=== PATIENT | male | born 1950 | race Caucasian/White ===

== ENCOUNTER → 2019-04-03 | Outpatient (CLI) | payer MEDICARE, OTHER ==
--- NOTE | 2019-04-03 12:20 | Diagnostic Imaging Report ---
PROCEDURE: CT abdomen and pelvis without contrast. TECHNIQUE: Multiple contiguous axial images were obtained through the abdomen and pelvis without the use of intravenous contrast. Auto Exposure Controls were utilized during the CT exam to meet ALARA standards for radiation dose reduction. INDICATION: New diagnosis prostate cancer. COMPARISON: None FINDINGS: Included portions of the lung bases are clear. Note is made of moderate calcified coronary atherosclerosis. CT ABDOMEN: Small bowel loops are nondistended. Normal appendix is identified. Multiple hypodense bilateral renal cysts are identified. Otherwise, kidneys, adrenal glands, spleen, pancreas, and liver have an unremarkable noncontrast CT appearance. There is no loculated fluid collection, free fluid, nor free air within the abdomen. No abnormal mesenteric or retroperitoneal adenopathy is seen. Osseous structures show no acute abnormalities. CT PELVIS: Urinary bladder is unopacified. No calculi are seen within the urinary bladder. There is no loculated fluid collection, free fluid, nor free air within the pelvis. No abnormal lymph nodes are identified. Bilateral fat-containing inguinal hernias are noted. Osseous structures show no acute abnormalities. IMPRESSION: 1. Bilateral hypodense renal cysts. Otherwise, unremarkable noncontrast CT of the abdomen and pelvis. Dictated by: Dictated on workstation # [id number]
== END ==
LOC: RAD 11:30
PROVIDERS: ATTEND Urology
DX: C61 Malignant neoplasm of prostate (principal); N28.1 Cyst of kidney, acquired
CPT/HCPCS: 74176

== ENCOUNTER → 2019-04-03 | Outpatient (CLI) | payer MEDICARE ==
--- NOTE | 2019-04-03 15:17 | Diagnostic Imaging Report ---
INDICATION: Prostate carcinoma. TECHNIQUE: Patient was administered 25.2 mCi of technetium-99m MDP intravenously, and whole-body imaging was performed after a 3-hour delay. COMPARISON: No prior studies are available for comparison. FINDINGS: There is normal uptake of activity by the axial and appendicular skeleton. There is uptake by the kidneys with excretion into urinary bladder. There is some mild uptake in the mid and lower thoracic spine. There is some uptake identified in the lower lumbar spine. This is most likely degenerative. No other suspicious foci are seen. There are some chronic changes of the right foot and ankle region. IMPRESSION: Degenerative and chronic changes, as described. There is no definite scintigraphic evidence of osseous metastatic disease. Dictated by: Dictated on workstation # [id number]
== END ==
LOC: CARD 11:24
PROVIDERS: ATTEND Urology
DX: C61 Malignant neoplasm of prostate (principal); M19.90 Unspecified osteoarthritis, unspecified site
CPT/HCPCS: 78306

== ENCOUNTER 2019-04-23 13:29 | Outpatient (RCR) | payer MEDICARE, OTHER | END 2019-07-22 | disposition home or self-care (01) | LOC: ONC 13:29 | PROVIDERS: ATTEND Radiology Radiation Oncology | DX: C61 Malignant neoplasm of prostate (principal) | CPT/HCPCS: 99204 ==

== ENCOUNTER 2019-08-25 05:33 | Outpatient (RCR) | payer MEDICARE, OTHER ==
[~2019-08-25] VITALS: Ht 170.2 cm; Wt 83.6 kg
[~2019-08-25 05:33] MED LIST: ASPI-586 PO; ATOR10TA66 PO; FINA5TAB6 PO; FLUO20CA46 PO; GLIM2TAB4 PO; LORA10TA76 PO; MELO15TA39 PO; METF-397 PO; METO-333 PO; NAPR220T66 PO
== END 2019-08-25 11:02 | disposition home or self-care (01) ==
LOC: PREOP 05:33
PROVIDERS: ATTEND Urology
DX: Z01.812 Encounter for preprocedural laboratory examination (principal); C61 Malignant neoplasm of prostate; Z20.828 Contact with and (suspected) exposure to other viral communicable diseases
CPT/HCPCS: 87635

== ENCOUNTER 2019-08-27 06:12 | Day surgery (SDC) | payer MEDICARE, OTHER ==
[~2019-08-27] VITALS: Ht 172 cm; Wt 82.7 kg
[2019-08-27] VITALS (11 sets, daily range): BP systolic 104–132; BP diastolic 61–96
--- OUTSIDE RECORDS SUMMARY | 2019-08-27 06:16 | XMS REPORT | Continuity of Care Document ---
Demographics x Preferred Language Unknown Marital Status Unknown Taoist Affiliation Unknown Race Unknown Ethnic Group Unknown Author Organization Unknown Address Unknown Phone Unavailable Allergies Active Description Code Type Severity Reaction Onset Reported/Identified Relationship to Patient Clinical Status Yes No Known Drug Allergies [id number] Drug Allergy Unknown N/A 08/20/2019 Medications There is no data. Problems Date Dx Coded Attending Type Code Diagnosis Diagnosed By 04/07/2019 CHUCKIE TORREZ MD, Ot C61 MALIGNANT NEOPLASM OF PROSTATE 04/07/2019 CHUCKIE TORREZ MD Ot M19.9 0 UNSPECIFIED OSTEOARTHRITIS, UNSPECIFIED 04/09/2019 CHUCKIE TORREZ MD Ot C61 MALIGNANT NEOPLASM OF PROSTATE 04/09/2019 CHUCKIE TORREZ MD Ot N28.1 CYST OF KIDNEY, ACQUIRED 04/09/2019 CHUCKIE TORREZ MD Ot C61 MALIGNANT NEOPLASM OF PROSTATE 04/09/2019 CHUCKIE TORREZ MD Ot M19.9 0 UNSPECIFIED OSTEOARTHRITIS, UNSPECIFIED 04/23/2019 CHUCKIE TORREZ MD Ot C61 MALIGNANT NEOPLASM OF PROSTATE 04/23/2019 CHUCKIE TORREZ MD Ot M19.9 0 UNSPECIFIED OSTEOARTHRITIS, UNSPECIFIED 05/29/2019 FELIX DEMPSEY, ERIN Bassett Ot C61 MALIGNANT NEOPLASM OF PROSTATE 07/22/2019 ERIN WASHINGTON MD Ot C61 MALIGNANT NEOPLASM OF PROSTATE 07/24/2019 ERIN WASHINGTON MD E Ot C61 MALIGNANT NEOPLASM OF PROSTATE 07/28/2019 FELIX DEMPSEY, ERIN E Ot C61 MALIGNANT NEOPLASM OF PROSTATE 08/05/2019 ERIN WASHINGTON MD Ot C61 MALIGNANT NEOPLASM OF PROSTATE Procedures There is no data. Results Test Result Range LIPID PANEL - 06/13/18 09:00 CHOLESTEROL, TOTAL 112 mg/dL <200 HDL CHOLESTEROL 37 mg/dL >40 TRIGLYCERIDES 87 mg/dL <150 LDL-CHOLESTEROL 58 mg/dL (calc) NRG CHOL/HDLC RATIO 3.0 (calc) <5.0 NON HDL CHOLESTEROL 75 mg/dL (calc) <130 CBC w/MANUAL DIFF - 06/13/18 09:00 WHITE BLOOD CELL COUNT 4.9 Thousand/uL 3 .8-10.8 RED BLOOD CELL COUNT 4.24 Million/uL 4.2 0-5.80 HEMOGLOBIN 13.6 g/dL 13.2-17.1 HEMATOCRIT 38.6 % 38.5-50.0 MCV 91.0 fL 80.0-100.0 MCH 32.1 pg 27.0-33.0 MCHC 35.2 g/dL 32.0-36.0 RDW 12.6 % 11.0-15.0 PLATELET COUNT 178 Thousand/uL 140-400 MPV 10.2 fL 7.5-12.5 ABSOLUTE NEUTROPHILS 3464 cells/uL 1500- 7800 ABSOLUTE MONOCYTES 147 cells/uL 200-950 ABSOLUTE EOSINOPHILS 98 cells/uL 15-500 ABSOLUTE BASOPHILS 0 cells/uL 0-200 NEUTROPHILS 70.7 % NRG LYMPHOCYTES 24.3 % NRG MONOCYTES 3.0 % NRG EOSINOPHILS 2.0 % NRG BASOPHILS 0 % NRG ABSOLUTE LYMPHOCYTES 1191 cells/uL 850-3 900 PLATELET ESTIMATION ADEQUATE ADEQUATE COMMENT(S) NRG TSH - 06/13/18 09:00 TSH 1.99 mIU/L 0.40-4.50 TSH w/ FREE T4 - 12/11/18 09:49 TSH 2.82 mIU/L 0.40-4.50 T4, FREE 1.0 ng/dL 0.8-1.8 LIPID PANEL - 12/11/18 09:49 CHOLESTEROL, TOTAL 116 mg/dL <200 HDL CHOLESTEROL 46 mg/dL >40 TRIGLYCERIDES 69 mg/dL <150 LDL-CHOLESTEROL 55 mg/dL (calc) NRG CHOL/HDLC RATIO 2.5 (calc) <5.0 NON HDL CHOLESTEROL 70 mg/dL (calc) <130 CMP - 12/11/18 09:49 GLUCOSE 169 mg/dL 65-99 UREA NITROGEN (BUN) 23 mg/dL 7-25 CREATININE 0.81 mg/dL 0.70-1.18 eGFR NON-AFR. COLOMBIAN 90 mL/min/1.73m2 > OR = 60 eGFR 104 mL/min/1.73m2 > OR = 60 BUN/CREATININE RATIO NOT APPLICABLE (calc) 6-22 SODIUM 136 mmol/L 135-146 POTASSIUM 4.0 mmol/L 3.5-5.3 CHLORIDE 104 mmol/L 98-110 CARBON DIOXIDE 25 mmol/L 20-32 CALCIUM 9.3 mg/dL 8.6-10.3 PROTEIN, TOTAL 6.4 g/dL 6.1-8.1 ALBUMIN 4.4 g/dL 3.6-5.1 GLOBULIN 2.0 g/dL (calc) 1.9-3.7 ALBUMIN/GLOBULIN RATIO 2.2 (calc) 1.0-2. 5 BILIRUBIN, TOTAL 1.6 mg/dL 0.2-1.2 ALKALINE PHOSPHATASE 92 U/L 40-115 AST 17 U/L 10-35 ALT 9 U/L 9-46 CBC w/MANUAL DIFF - 12/11/18 09:49 WHITE BLOOD CELL COUNT 6.5 Thousand/uL 3 .8-10.8 RED BLOOD CELL COUNT 4.44 Million/uL 4.2 0-5.80 HEMOGLOBIN 14.2 g/dL 13.2-17.1 HEMATOCRIT 42.3 % 38.5-50.0 MCV 95.3 fL 80.0-100.0 MCH 32.0 pg 27.0-33.0 MCHC 33.6 g/dL 32.0-36.0 RDW 12.2 % 11.0-15.0 PLATELET COUNT 170 Thousand/uL 140-400 MPV 10.7 fL 7.5-12.5 ABSOLUTE NEUTROPHILS 3783 cells/uL 1500- 7800 ABSOLUTE MONOCYTES 598 cells/uL 200-950 ABSOLUTE EOSINOPHILS 267 cells/uL 15-500 ABSOLUTE BASOPHILS 130 cells/uL 0-200 NEUTROPHILS 58.2 % NRG LYMPHOCYTES 23.5 % NRG MONOCYTES 9.2 % NRG EOSINOPHILS 4.1 % NRG BASOPHILS 2.0 % NRG ABSOLUTE BAND NEUTROPHILS 195 cells/uL 0 -750 ABSOLUTE LYMPHOCYTES 1528 cells/uL 850-3 900 BAND NEUTROPHILS 3.0 % NRG PLATELET ESTIMATION ADEQUATE ADEQUATE CBC MORPHOLOGY NORMAL A1C - 12/11/18 09:49 HEMOGLOBIN A1c 6.4 % of total Hgb <5.7 PSA (FREE AND TOTAL) - 02/24/19 09:04 PSA, TOTAL 75.6 ng/mL < OR = 4.0 PSA, FREE 2.5 ng/mL NRG PSA, % FREE NOT CALCULATED % (calc) >25 A1C - 07/01/19 08:00 HEMOGLOBIN A1c 7.1 % of total Hgb <5.7 Encounters ACCT No. Visit Date/Time Discharge Status Pt. Type Provider Facility Loc./Unit Complaint [id number] 07/02/2019 14:20:00 07/02/2019 23:59: 59 CLS Outpatient [facility] [id number] 07/01/2019 07:45:00 Document Registration [id number] 02/24/2019 08:00:00 Document Registration [id number] 12/11/2018 07:45:00 Document Registration [id number] 06/13/2018 08:00:00 Document Registration [id number] 08/25/2019 05:33:00 11:02:00 DIS Outpatient CHUCKIE TORREZ MD [facility] PREOP BRACHYTHERAPY AND SPACE OAR [id number] 07/30/2019 10:59:00 23:59:59 CLS Outpatient ERIN WASHINGTON MD [facility] ONC [id number] 04/23/2019 13:29:00 00:01:00 DIS Outpatient ERIN WASHINGTON MD [facility] ONC [id number] 04/03/2019 11:30:00 23:59:59 CLS Outpatient CHUCKIE TORREZ MD [facility] RAD PROSTATE CANCER [id number] 04/03/2019 11:24:00 23:59:59 CLS Outpatient CHUCKIE TORREZ MD [facility] CARD PROSTATE CANCER [id number] 08/27/2019 08:00:00 P EN PreadCHUCKIE Mireles MD [facility] PROSTATE CANCER
[2019-08-27] MEDS ORDERED: LACTATED RINGERS 1,000 ML IV PRN (06:21)
[2019-08-27] MEDS ORDERED: LEVOFLOXACIN 500 MG/100 ML IV 100 ML IV ONE (06:30)
[2019-08-27] MEDS ORDERED: proPOfol 200 MG/20 ML (DIPRIVAN) VIAL IV ONE ×2 (06:38→07:58)
[2019-08-27] MEDS ORDERED: fentaNYL INJECTION 100 MCG/2 ML AMP ONE (06:38)
[2019-08-27] MEDS ORDERED: MIDAZOLAM 2 MG/2 ML (VERSED) VIAL ONE (06:38)
[2019-08-27] MEDS ORDERED: LIDOCAINE PF 2% 5 ML (XYLOCAINE) VIAL ONE (06:38)
[2019-08-27] MEDS ORDERED: ONDANSETRON 4 MG/2 ML (SDV) Z0FRAN ONE (06:44)
[2019-08-27] MEDS ORDERED: SEVOFLURANE (ULTANE) 15 ML INHAL SOLN ONE ×4 (06:45→08:41)
[2019-08-27] MEDS ORDERED: ROCURONIUM 10 MG/ML 5 ML SYRINGE IV ONE (06:47)
[2019-08-27] MEDS ORDERED: BACITRACIN OINTMENT 28 GM TUBE ONE (07:10)
--- NOTE | 2019-08-27 07:11 | Progress Note-Pre Operative ---
Pre-Operative Progress Note H&P Reviewed The H&P was reviewed, patient examined and no changes noted. Date Seen by Provider: Aug 27, 2019 Time Seen by Provider: 07:10 Date H&P Reviewed: Aug 27, 2019 Time H&P Reviewed: 07:10 Pre-Operative Diagnosis: CA PROSTATE CHUCKIE TORREZ MD Aug 27, 2019 07:11
--- NOTE | 2019-08-27 07:12 | Progress Note-Post Operative ---
Post-Operative Progess Note Surgeon (s)/Rn Home Health (s) Surgeon CHUCKIE TORREZ MD Rn Home Health: ERIN WASHINGTON MD Pre-Operative Diagnosis CA PROSTATE Post-Operative Diagnosis SAME Procedure & Operative Findings Date of Procedure 08/27/19 Procedure Performed/Findings BRACHYTHERAPY, CYSTOGRAM AND SPACE OAR Anesthesia Type GENERAL Estimated Blood Loss Estimated blood loss (mL): NONE Specimens/Packing Specimens Removed NONE Packing: NONE CHUCKIE TORREZ MD Aug 27, 2019 07:12
--- NOTE | 2019-08-27 07:16 | Discharge Inst-Urology ---
Discharge Inst-Urology Reconcile Patient Problems Problems Reviewed?: Yes Final Diagnosis CA PROSTATE Patient Instructions/Follow Up Plan/Assessment/Instructions Discharge with garcia and leg bag day time and large bag night time with instructions Patient to come to office Sunday 9am to MANUELA Garcia Please make appointment to been seen in office in 2 weeks. Rest till then Showers, no bath Keep bowels soft and moving Increase oral fluids for 48 hours and then as needed. Diet as tolerated. If questions or concerns contact your physician Or seek help at emergency department. CHUCKIE TORREZ MD Aug 27, 2019 07:16
[2019-08-27] MEDS ORDERED: ATROPINE INJ 0.4 MG/ML SDV ONE (08:41)
[2019-08-27] MEDS ORDERED: SUCCINYLCHOLINE INJ 100 MG/5 ML SYR ONE (08:42)
[2019-08-27] MEDS ORDERED: FAMOTIDINE 20MG/2ML IV (PEPCID) ONE (08:45)
[2019-08-27] MEDS ORDERED: IOPAMIDOL 61% 30 ML (ISOVUE 300) VIAL ONE (08:47)
[2019-08-27] MEDS ORDERED: FAMOTIDINE 20MG/2ML IV (PEPCID) IVP ONE (09:00)
[2019-08-27] MEDS ORDERED: MEPERIDINE (DEMEROL) INJ 50 MG/ML IVP ONE (09:30)
[2019-08-27] MEDS ORDERED: morphine INJ 10 MG/ML 1ML (SYR OR VIAL) IVP ONE (09:30)
[2019-08-27] MEDS ORDERED: fentaNYL INJECTION 100 MCG/2 ML AMP IVP ONE (09:30)
[2019-08-27] MEDS ORDERED: ONDANSETRON 4 MG/2 ML (SDV) Z0FRAN IVP PRN (09:30)
--- NOTE | 2019-08-27 10:01 | Anesthesia-General Post-Op ---
General Patient Condition Mental Status/LOC: Same as Preop Cardiovascular: Satisfactory Nausea/Vomiting: Absent Respiratory: Satisfactory Pain: Controlled Complications: Absent Post Op Complications Complications None Follow Up Care/Instructions Patient Instructions None needed. Anesthesia/Patient Condition Patient Condition Patient is doing well, no complaints, stable vital signs, no apparent adverse anesthesia problems. No complications reported per nursing. DMITRY SANCHEZ CRNA Aug 27, 2019 10:01
--- NOTE | 2019-08-27 10:03 | Diagnostic Imaging Report ---
INDICATION: Fluoroscopy during brachytherapy. Fluoroscopy was provided during brachytherapy. 50 seconds of fluoroscopic time was utilized. Single image was obtained demonstrating multiple radiation seed implants overlying the prostate. IMPRESSION: Fluoroscopy during brachytherapy. Dictated by: Dictated on workstation # [id number]
[2019-08-27] MEDS ORDERED: HYOS0.1281 PO (10:39)
[2019-08-27] MEDS ORDERED: SULF1TAB35 PO (10:39)
[2019-08-27] MEDS ORDERED: PHEN-640 PO (10:39)
== END 2019-08-27 15:14 | disposition home or self-care (01) ==
LOC: SDC 06:12
PROVIDERS: ATTEND Urology
DX: C61 Malignant neoplasm of prostate (principal); I10 Essential (primary) hypertension; E11.9 Type 2 diabetes mellitus without complications; E78.5 Hyperlipidemia, unspecified; F32.9 Major depressive disorder, single episode, unspecified; N40.0 Benign prostatic hyperplasia without lower urinary tract symptoms; M06.9 Rheumatoid arthritis, unspecified; Z79.82 Long term (current) use of aspirin; Z79.899 Other long term (current) drug therapy; Z79.84 Long term (current) use of oral hypoglycemic drugs; Z80.42 Family history of malignant neoplasm of prostate
CPT/HCPCS: 55875; 76000; 76965; 77290; 77318; 77332; 77370; 77470; 77778; 87081; C1715 ×2; C2643

== ENCOUNTER → 2019-09-19 | Outpatient (CLI) | payer MEDICARE, OTHER ==
[~2019-09-19] MED LIST changes: +HYOS0.1281 PO; +PHEN-640 PO; +SULF1TAB35 PO
--- NOTE | 2019-09-19 11:47 | Diagnostic Imaging Report ---
PROCEDURE: CT abdomen and pelvis without contrast. TECHNIQUE: Multiple contiguous axial images were obtained through the abdomen and pelvis without the use of intravenous contrast. Auto Exposure Controls were utilized during the CT exam to meet ALARA standards for radiation dose reduction. INDICATION: Prostate carcinoma. Correlation is made with prior CT from 04/03/2019. FINDINGS: The lung bases are clear. The liver and gallbladder are unremarkable. No biliary ductal dilatation is seen. Pancreas and spleen are unremarkable. No adrenal mass is detected. Bilateral low-density renal masses are again noted suggestive of cysts. Largest is in the upper pole of the right kidney approximately 7.4 cm in size. No calculi or hydronephrosis is detected. Aorta is non-aneurysmal. No central retroperitoneal or mesenteric lymphadenopathy is detected. The small and large bowel loops are normal caliber. No obstruction is seen. No definite iliac or inguinal lymphadenopathy is identified. Prostate does contain numerous radiation seed implants. Bladder is decompressed. There are fat-containing inguinal hernias bilaterally. No definite osteoblastic or osteolytic lesions are seen. IMPRESSION: 1. Bilateral low-density renal masses suggestive of cirrhosis. 2. Bilateral fat-containing inguinal hernias. 3. No evidence of abdominal or pelvic lymphadenopathy or metastatic disease. Dictated by: Dictated on workstation # [id number]
--- NOTE | 2019-09-19 15:42 | Diagnostic Imaging Report ---
INDICATION: Prostate carcinoma. TECHNIQUE: The patient was administered 26.7 mCi technetium 99m MDP intravenously and whole-body imaging was performed after a 3 hour delay. CORRELATION is made with prior whole body bone scan from 04/03/2019. Areas of uptake in the mid and lower thoracic spine and lower lumbar spine are similar to prior exam. There is uptake in the right ankle, likely degenerative. No new foci of tracer accumulation is seen. There is uptake by the kidneys with excretion into urinary bladder. IMPRESSION: Stable whole body bone scan when compared with the exam from 04/03/2019. Dictated by: Dictated on workstation # [id number]
== END ==
LOC: CARD 11:21
PROVIDERS: ATTEND Urology
DX: C61 Malignant neoplasm of prostate (principal); K40.20 Bilateral inguinal hernia, without obstruction or gangrene, not specified as recurrent; Z20.828 Contact with and (suspected) exposure to other viral communicable diseases
CPT/HCPCS: 74176; 78306; A9503

== ENCOUNTER → 2019-10-28 | Outpatient (RCR) | payer MEDICARE, OTHER | END | disposition home or self-care (01) | LOC: ONC 07-30 10:59 | PROVIDERS: ATTEND Radiology Radiation Oncology | DX: Z51.0 Encounter for antineoplastic radiation therapy (principal); C61 Malignant neoplasm of prostate | CPT/HCPCS: 76873; 77290; 77300; 77301; 77334; 77336; 77338; 77385; 77470; 99212 ==

== ENCOUNTER 2019-11-24 08:00 | Outpatient (RCR) | payer MEDICARE, OTHER | END 2020-01-27 | disposition home or self-care (01) | LOC: ONC 08:00 | PROVIDERS: ATTEND Radiology Radiation Oncology | DX: Z51.0 Encounter for antineoplastic radiation therapy (principal); C61 Malignant neoplasm of prostate | CPT/HCPCS: 77385; G0463; 77295; 77336 ==

== ENCOUNTER 2022-05-03 08:35 | Outpatient (RCR) | payer MEDICARE, OTHER ==
[~2022-05-03 08:35] MED LIST changes: -FLUO20CA46 PO; +FLUO20CA48 PO; -SULF1TAB35 PO; +SULF1TAB38 PO
[2022-05-03] MEDS ORDERED: LEUPROLIDE 22.5 MG SYRINGE (ELIGARD) SQ SCH (09:30)
== END 2022-05-05 | disposition home or self-care (01) ==
LOC: ONC 08:35
PROVIDERS: ATTEND Internal Medicine Hematology & Oncology
DX: C61 Malignant neoplasm of prostate (principal)
CPT/HCPCS: 84153; 96402

== ENCOUNTER 2022-07-25 08:52 | Outpatient (RCR) | payer MEDICARE, OTHER ==
[~2022-07-25 08:52] MED LIST changes: +LEUPROLIDE 22.5 MG SYRINGE (ELIGARD) SQ SCH
== END 2022-08-04 | disposition home or self-care (01) ==
LOC: ONC 08:52
PROVIDERS: ATTEND Internal Medicine Hematology & Oncology
DX: Z51.11 Encounter for antineoplastic chemotherapy (principal); C61 Malignant neoplasm of prostate
CPT/HCPCS: 36415; 84153; 96402